=== PATIENT | male | born 1950 | race Two or more races ===

== ENCOUNTER 2018-09-11 14:53 | Emergency (ER) | payer OTHER ==
[~2018-09-11] VITALS: Ht 170.2 cm; Wt 64.4 kg
[2018-09-11] MEDS ORDERED: TRAMADOL HCL50 MG ORAL (15:05)
--- NOTE | 2018-09-11 15:22 | Emergency Room Report ---
History of Present Illness General Chief Complaint: Back Pain-No Injury Source: Patient, EMS (Flako Wall MD) Present Illness HPI Patient is a 67-year-old male who presented after increased low back pain and generalized weakness. Patient reports having increased the weight loss as well as the worsened weakness to the point where he is unable to ambulatory for the past few days. The patient reports having been taking a codeine-containing pain medications.The patient denies any fever or vomiting. He reports having a diminished appetite.The patient had reportedly fallen approximately 5 days ago. He reports having a difficulty with movements of both legs as well as difficulty moving his low back. The patient reports having difficulty going to the bathroom as well as some possible hematuria per (Flako Wall MD) Allergies: Coded Allergies: No Known Allergies (Unverified , 09/11/18) Patient History Past Medical History: see triage record Reviewed Nursing Documentation: PMH: Agreed; PSxH: Agreed (Flako Wall MD) Nursing Documentation-PMH Past Medical History: No Stated History (Flako Wall MD) Review of Systems All Other Systems: negative except mentioned in HPI (Flako Wall MD) Physical Exam Vital Signs Date Time Temp Pulse Resp B/P (MAP) Pulse Ox O2 Delivery O2 Flow Rate FiO2 09/11/18 15:01 97.9 112 24 122/70 95 Room Air Sp02 EP Interpretation: reviewed, normal General Appearance: normal inspection, alert, thin, Chronically Ill Head: atraumatic ENT: normal ENT inspection, hearing grossly normal, normal voice, dry mucus membranes Neck: normal inspection, supple, no bony tend, limited range of motion Respiratory: normal inspection, lungs clear, normal breath sounds, no respiratory distress, no retraction, no wheezing Cardiovascular #1: regular rate, rhythm, no edema Gastrointestinal: soft, no guarding, no hernia, distended Genitourinary: no CVA tenderness Musculoskeletal: decreased range of motion Neurologic: alert, oriented x3, responsive, motor weakness - Bilateral lower extremity marked diminished strength bilateral lower extremities with diminished reflexes, other - slow speech, flat affect, Psychiatric: normal inspection, judgement/insight normal, mood/affect normal Reflexes: 1+ ankle (R), 1+ ankle (L) Skin: normal inspection, normal color, no rash (Flako Wall MD) Medical Decision Making Diagnostic Impression: Primary Impression: Thoracic compression fracture Additional Impressions: Fall Paraparesis of both lower limbs ER Course Patient presented for back pain. Differential diagnosis included but was not limited to herniated disc, cauda equina syndrome, abdominal aortic aneurysm, perforated ulcer, spinal epidural abscess, spinal stenosis, lumbar fracture, metastatic lesion, pyelonephritis. Because of complexity of patient's case laboratory testing and imaging studies were ordered. CT imaging of the abdomen pelvis with IV contrast read by radiology showed Compression fracture of T12. The patient's urinary bladder was noted to be distended.The Ugalde catheter was placed.The lesions to multiple rhythms with fractures associated. The patient was given IV pain medications. The patient is given IV Decadron. The patient was discussed with the patient's [facility]MO physician for possible transfer. Patient was endorsed to Dr. Garber pending possible transfer for neurosurgery Labs Test 09/11/18 15:40 White Blood Count 16.1 K/UL (4.8-10.8) Red Blood Count 4.79 M/UL (4.70-6.10) Hemoglobin 13.9 G/DL (14.2-18.0) Hematocrit 40.3 % (42.0-52.0) Mean Corpuscular Volume 84 FL (80-99) Mean Corpuscular Hemoglobin 28.9 PG (27.0-31.0) Mean Corpuscular Hemoglobin Concent 34.3 G/DL (32.0-36.0) Red Cell Distribution Width 11.8 % (11.6-14.8) Platelet Count 373 K/UL (150-450) Mean Platelet Volume 6.3 FL (6.5-10.1) Neutrophils (%) (Auto) 78.4 % (45.0-75.0) Lymphocytes (%) (Auto) 10.2 % (20.0-45.0) Monocytes (%) (Auto) 10.6 % (1.0-10.0) Eosinophils (%) (Auto) 0.3 % (0.0-3.0) Basophils (%) (Auto) 0.6 % (0.0-2.0) Erythrocyte Sedimentation Rate 19 MM/HR (0-20) Prothrombin Time 10.8 SEC (9.30-11.50) Prothromb Time International Ratio 1.0 (0.9-1.1) Activated Partial Thromboplast Time 28 SEC (23-33) Sodium Level 137 MMOL/L (136-145) Potassium Level 3.5 MMOL/L (3.5-5.1) Chloride Level 94 MMOL/L (98-107) Carbon Dioxide Level 34 MMOL/L (21-32) Anion Gap 9 mmol/L (5-15) Blood Urea Nitrogen 20 mg/dL (7-18) Creatinine 0.9 MG/DL (0.55-1.30) Estimat Glomerular Filtration Rate > 60 mL/min (>60) Glucose Level 97 MG/DL (74-106) Calcium Level 9.6 MG/DL (8.5-10.1) Total Bilirubin 0.6 MG/DL (0.2-1.0) Aspartate Amino Transf (AST/SGOT) 45 U/L (15-37) Alanine Aminotransferase (ALT/SGPT) 50 U/L (12-78) Alkaline Phosphatase 320 U/L (46-116) Troponin I 0.000 ng/mL (0.000-0.056) C-Reactive Protein, Quantitative 11.7 mg/dL (0.00-0.90) Total Protein 7.2 G/DL (6.4-8.2) Albumin 2.7 G/DL (3.4-5.0) Globulin 4.5 g/dL Albumin/Globulin Ratio 0.6 (1.0-2.7) Lipase 274 U/L (73-393) Thyroid Stimulating Hormone (TSH) 0.919 uiU/mL (0.358-3.740) (Flako Wall MD) ER Course See above. Presented to Dr. Robins at [facility] who accepts the patient. Stable for transfer to higher level of care. Patient pain improved. (Jared Garber MD) Last Vital Signs Date Time Temp Pulse Resp B/P (MAP) Pulse Ox O2 Delivery O2 Flow Rate FiO2 09/11/18 15:01 97.9 112 24 122/70 95 Room Air Status: unchanged (Flako Wall MD) Status: improved (Jared Garber MD) Disposition: XFER SHT-TRM HOSP Condition: Serious Flako Wall MD Sep 11, 2018 15:22 Jared Garber MD Sep 12, 2018 01:13
[2018-09-11 15:24] VITALS: BP 138/76
[2018-09-11] MEDS ORDERED: Isovue-300 100ml vial INJ PRN (15:30)
[2018-09-11 16:22] LABS: BASOPHILS % (AUTO) 0.6 % (0.0-2.0); EOSINOPHILS % (AUTO) 0.3 % (0.0-3.0); HEMATOCRIT 40.3 % (42.0-52.0); HEMOGLOBIN 13.9 G/DL (14.2-18.0); LYMPHOCYTES % (AUTO) 10.2 % (20.0-45.0); MEAN CORPUSCULAR VOLUME 84 FL (80-99); MONOCYTES % (AUTO) 10.6 % (1.0-10.0); NEUTROPHILS % (AUTO) 78.4 % (45.0-75.0); PLATELET COUNT 373 K/UL (150-450); RED BLOOD COUNT 4.79 M/UL (4.70-6.10); RED CELL DISTRIBUTION WIDTH 11.8 % (11.6-14.8); WHITE BLOOD COUNT 16.1 K/UL (4.8-10.8)
[2018-09-11 16:43] LABS: ANION GAP 9 mmol/L (5-15); BLOOD UREA NITROGEN 20 mg/dL (7-18); CALCIUM 9.6 MG/DL (8.5-10.1); CARBON DIOXIDE 34 MMOL/L (21-32); CHLORIDE 94 MMOL/L (98-107); CREATININE 0.9 MG/DL (0.55-1.30); POTASSIUM 3.5 MMOL/L (3.5-5.1); SODIUM 137 MMOL/L (136-145)
[2018-09-11 16:58] LABS: ALANINE AMINOTRANSFERASE 50 U/L (12-78); ALBUMIN 2.7 G/DL (3.4-5.0); ALBUMIN/GLOBULIN RATIO 0.6 (1.0-2.7); ALKALINE PHOSPHATASE 320 U/L (46-116); ASPARTATE AMINO TRANSFERASE 45 U/L (15-37); BILIRUBIN,TOTAL 0.6 MG/DL (0.2-1.0)
[2018-09-11] MEDS ORDERED: cefTRIAXone 2 GM in NS 55 ML IVPB ONE (17:45)
[2018-09-11] MEDS ORDERED: Dexamethasone 4mg/ml vial IVP ONE (18:00)
[2018-09-11] MEDS ORDERED: Morphine Sulfate 4mg/ml Inj (IV/IM USE ONLY) IVP ONE ×2 (18:00→22:00)
--- NOTE | 2018-09-11 18:23 | Diagnostic Imaging Report ---
History: ABD PAIN Exam: CT ABDOMEN + PELVIS With Contrast Technique more: CTDI is 13.21 mGy and DLP is 655 mGy-cm. Technique more: One or more of the following dose reduction techniques were used: automated exposure control, adjustment of the mA and/or kV according to patient size, use of iterative reconstruction technique. Comparison: None available FINDINGS: Basilar dependent atelectasis. Large heterogeneous expansile destructive lesion of the left posterolateral 11th rib measuring approximately 8 x 3. 8 x 3 cm. Small lytic lesion posterior left 12th rib anterolateral right eighth rib with associated pathologic fracture. Heterogeneous lytic lesion T12 vertebral body with associated pathologic compression fracture with moderate loss of vertebral height and appearance of posterior intraspinal canal soft tissue component and reduction of the canal approximately measuring 8 mm for example axial 10 and sagittal 31. Complex appearing cystic lesion with curvilinear area of calcifications at the right adrenal gland measuring 2.4 cm. Lobular heterogeneous right liver lesion near the tip measuring up to 3.6 cm axial 32, coronal 28 and 25. Hepatic cyst. A couple of smaller indeterminate low-density lesions for example around 1.1 cm axial 15 and 1.7 cm axial 23. Concerning for possible metastatic disease, clinically correlate. Renal cysts. The spleen, pancreas, left adrenal gland, gallbladder and abdominal aorta appear within limits. Moderate to large amount of colonic stool. The rectum is filled with stool measuring up to 7.3 cm which may represent degree of fecal impaction. No small bowel dilation or free air. Expansile lytic lesion at the junction of the right superior pubic ramus and acetabulum with the associated appearing pathologic fracture suggested. IMPRESSION: Large heterogeneous expansile destructive lesion of the left posterolateral 11th rib measuring approximately 8 x 3.8 x 3 cm. Small lytic lesion posterior left 12th rib anterolateral right eighth rib with associated pathologic fracture. Heterogeneous lytic lesion T12 vertebral body with associated pathologic compression fracture with moderate loss of vertebral height and appearance of posterior intraspinal canal soft tissue component and reduction of the canal approximately measuring 8 mm for example axial 10 and sagittal 31. Complex appearing cystic lesion with curvilinear area of calcifications at the right adrenal gland measuring 2.4 cm. Lobular heterogeneous right liver lesion near the tip measuring up to 3.6 cm axial 32, coronal 28 and 25. Hepatic cyst. A couple of smaller indeterminate low-density lesions for example around 1.1 cm axial 15 and 1.7 cm axial 23. Concerning for possible metastatic disease, clinically correlate. Expansile lytic lesion at the junction of the right superior pubic ramus and acetabulum with the associated appearing pathologic fracture suggested. Clinically correlate and requires further workup. Moderate to large amount of colonic stool. The rectum is filled with stool measuring up to 7.3 cm which may represent degree of fecal impaction.
[2018-09-11 19:15] LABS: APPEARANCE,URINE SLIGHTLY CLOUDY; BILIRUBIN, URINE 2+ (NEGATIVE); COLOR,URINE BROWN; GLUCOSE, URINE (UA) NEGATIVE (NEGATIVE); KETONES,URINE 1+ (NEGATIVE); LEUKOCYTE ESTERASE ,URINE 1+ (NEGATIVE); NITRITE,URINE NEGATIVE (NEGATIVE); PH,URINE 6 (4.5-8.0); PROTEIN,URINE 2+ (NEGATIVE); UROBILINOGEN,URINE 8 MG/DL (0.0-1.0)
[2018-09-11 19:21] VITALS: BP 113/62
[2018-09-11 22:15] VITALS: BP 130/73
[2018-09-12 00:30] VITALS: BP 113/73
[2018-09-12 01:00] VITALS: BP 113/73
--- NOTE | 2018-09-12 15:00 | Cardiology Report ---
APPROVED REPORT EKG Measurement Heart [id number] Sinus tachycardia Left axis deviation Abnormal ECG
== END 2018-09-12 01:00 | disposition short-term general hospital (02) ==
LOC: EDBD 14:53 → EMR 17:17
DX: M54.5 Low back pain (principal); S22.009A Unspecified fracture of unspecified thoracic vertebra, initial encounter for closed fracture; W19.XXXA Unspecified fall, initial encounter; Y92.9 Unspecified place or not applicable; G82.20 Paraplegia, unspecified; R53.1 Weakness
CPT/HCPCS: 36415; 51702; 74177; 80053; 81003; 82962; 83605; 83690; 84443; 84484; 85025; 85610; 85651; 85730; 86140; 86850; 86900; 86901; 87040; 93005; 96361; 96365; 96375; 96376; 99285; J0696; J1100; J2270; Q9967; S0028